=== PATIENT | male | born 1980 | race Caucasian/White ===

== ENCOUNTER 2018-10-06 08:09 | Emergency (ER) | payer MEDICARE ==
[~2018-10-06] VITALS: Ht 167.6 cm; Wt 93.9 kg
[2018-10-06] MEDS ORDERED: NAPROXEN500 MG PO (09:06)
[2018-10-06] MEDS ORDERED: CYCLOBENZAPRINE10 MG PO (09:09)
--- NOTE | 2018-10-06 09:32 | Diagnostic Imaging Report ---
EXAM: Cervical spine radiographs-3 views INDICATION: Status post fall. COMPARISON: None FINDINGS: BONES: The alignment is within normal limits. No acute displaced fractures. Vertebral body heights are preserved. C1 through the mid aspect of C7 are visualized on the lateral view. The lower aspect of C7 is partially obscured by the overlying shoulders. DISCS: Mild degenerative disc changes at C4-C5. JOINTS: No significant facet joint degenerative changes. SOFT TISSUES: Unremarkable IMPRESSION: No acute cervical spine radiographic abnormality. Signed by: Dr. Lizbeth Velásquez MD on 10/06/2018 9:29 AM
--- NOTE | 2018-10-06 09:34 | Diagnostic Imaging Report ---
Exam: Right shoulder radiographs-3 views History: Status post fall. Comparison: None. Findings: No evidence of acute fracture, malalignment, or soft tissue abnormality. Impression: No acute radiographic abnormality. Signed by: Dr. Lizbeth Velásquez MD on 10/06/2018 9:30 AM
== END 2018-10-06 09:48 | disposition home or self-care (01) ==
LOC: FSED 08:09
DX: S40.011A Contusion of right shoulder, initial encounter (principal); W01.0XXA Fall on same level from slipping, tripping and stumbling without subsequent striking against object, initial encounter; M47.892 Other spondylosis, cervical region; S16.1XXA Strain of muscle, fascia and tendon at neck level, initial encounter; Y92.511 Restaurant or cafe as the place of occurrence of the external cause
CPT/HCPCS: 72040; 99283

== ENCOUNTER 2019-01-06 20:28 | Emergency (ER) | payer OTHER ==
[~2019-01-06] VITALS: Ht 167.6 cm; Wt 93.4 kg
[~2019-01-06 20:28] MED LIST: CYCLOBENZAPRINE10 MG PO; NAPROXEN500 MG PO
--- OUTSIDE RECORDS SUMMARY | 2019-01-06 20:30 | XMS REPORT ---
[facility] Address Unknown Phone Unavailable Care Team Providers Care Germination Worker Name Role Phone Richar CABRALES Unavailable Unavailable Problems This patient has no known problems. Allergies, Adverse Reactions, Alerts This patient has no known allergies or adverse reactions. Medications This patient has no known medications. Results Test Description Test Time Test Comments Text Results Atomic Results Result Comments SHOULDER 2+VW RT - HOPD 2018 09:29:00 [place] [address] Patient Name: RADHA GUSTAFSON MR #: [id number] : 1980 Age/Sex: 38/M Req #: [id number] Adm Physician: Ordered by: HÉCTOR CABRALES MD Report #: [id number] Location: [facility] Room/Bed: Procedure: [id number] HOPD/SHOULDER 2+VW RT - HOPD Exam Date: 10/06/18 Exam Time: 0845 REPORT STATUS: Signed Exam: Right shoulder radiographs-3 views History: Status post fall. Comparison: None. Findings: No evidence of acute fracture, malalignment, or soft tissue abnormality. Impression: No acute radiographic abnormality. Signed by: Dr. Concepcion Key MD on 2018 9:30 AM Dictated By: CONCEPCION KEY MD 9 Transcribed By: DAMIR on 10/06/18929 COPY TO: HÉCTOR CABRALES MD C SPINE 2--3 VEWS - HOPD 2018 09:26:00 [facility] [address] [place] [address] Patient Name: RADHA GUSTAFSON MR #: [id number] : 1980 Age/Sex: 38/M Req #: [id number] Adm Physician: Ordered by: HÉCTOR CABRALES MD Report #: [id number] Location: [facility] Room/Bed: Procedure: [id number] HOPD/Vlad SPINE 2--3 VEWS - HOPD Exam Date: 10/06/18 Exam Time: 0845 REPORT STATUS: Signed EXAM: Cervical spine radiographs-3 views INDICATION: Status post fall. COMPARISON: None FINDINGS: BONES: The alignment is within normal limits. No acute displaced fractures. Vertebral body heights are preserved. C1 through the mid aspect of C7 are visualized on the lateral view. The lower aspect of C7 is partially obscured by the overlying shoulders. DISCS: Mild degenerative disc changes at C4- C5. JOINTS: No significant facet joint degenerative changes. SOFT TISSUES: Unremarkable IMPRESSION: No acute cervical spine radiographic abnormality. Signed by: Dr. Concepcion Key MD on 2018 9:29 AM Dictated By: CONCEPCION KEY MD 8 Transcribed By: DAMIR on 10/06/18928 COPY TO: HÉCTOR CABRALES MD
== END 2019-01-06 21:27 | disposition home or self-care (01) ==
LOC: FSED 20:28
DX: H00.014 Hordeolum externum left upper eyelid (principal)
CPT/HCPCS: 99282

== ENCOUNTER 2019-06-16 20:41 | Emergency (ER) | payer MEDICARE, OTHER ==
[~2019-06-16] VITALS: Ht 167.6 cm; Wt 97.5 kg
[2019-06-16] MEDS ORDERED: KETOROLAC TROMETHAMINE 60 MG/2 ML VIAL IM ONE (21:15)
[2019-06-16] MEDS ORDERED: KETOROLAC TROMETHAMINE 60 MG/2 ML VIAL ONE (21:26)
== END 2019-06-16 21:27 | disposition home or self-care (01) ==
LOC: FSED 20:41
DX: M25.511 Pain in right shoulder (principal)
CPT/HCPCS: 99282; J1885

== ENCOUNTER 2019-12-10 18:11 | Emergency (ER) | payer OTHER ==
[~2019-12-10] VITALS: Ht 167.6 cm; Wt 97.5 kg
[2019-12-10] MEDS ORDERED: TYLENOL # 31 EA PO (18:32)
[2019-12-10] MEDS ORDERED: ONDANSETRON HCL INJ 2MG/ML 2ML 2 MG/ML VIAL IV STA (18:35)
[2019-12-10] MEDS ORDERED: SODIUM CHLORIDE 0.9% 1000ML 1,000 ML IV STA (18:35)
[2019-12-10] MEDS ORDERED: LORAZEPAM INJ 2 MG/ML VIAL IV ONE (18:45)
[2019-12-10] MEDS ORDERED: SODIUM CHLORIDE FLUSH 10 ML SYR INJ PRN (18:45)
[2019-12-10] MEDS ORDERED: LORAZEPAM INJ 2 MG/ML VIAL ONE (18:50)
[2019-12-10] MEDS ORDERED: DONNATAL/LIDOCAINE/MAALOX 30 ML SUSP PO ONE (19:00)
[2019-12-10] MEDS ORDERED: BELLADONNA ALK/PHENOBARBITAL 5 ML UDC ONE (19:56)
[2019-12-10] MEDS ORDERED: LIDOCAINE VISC 2% SOLN 15 ML UDC ONE (19:56)
[2019-12-10] MEDS ORDERED: MAGNESIUM/ALUMINUM/SIMETHICONE 30 ML UDC ONE (19:56)
[2019-12-10] MEDS ORDERED: SODIUM CHLORIDE 0.9% 50ML 50 ML ONE (21:12)
[2019-12-10] MEDS ORDERED: IOPAMIDOL 370 MG/ML 200 ML INFUS..BTL INJ ONE (21:12)
[2019-12-10 21:34] VITALS: BP 149/74
[2019-12-10] MEDS ORDERED: ONDANSETRON ODT8 MG PO (21:34)
[2019-12-10] MEDS ORDERED: MECLIZINE HCL25 MG PO (21:34)
[2019-12-10] MEDS ORDERED: ATIVAN2 MG PO (21:34)
[2019-12-10] MEDS ORDERED: PROTONIX40 MG PO (21:34)
== END 2019-12-10 21:48 | disposition home or self-care (01) ==
LOC: FSED 18:39
DX: R42 Dizziness and giddiness (principal); K29.00 Acute gastritis without bleeding; R10.13 Epigastric pain; R11.2 Nausea with vomiting, unspecified; E86.0 Dehydration; R53.83 Other fatigue; R16.1 Splenomegaly, not elsewhere classified
CPT/HCPCS: 70450; 74177; 80048; 80053; 81003; 83518; 99284; J2060; J2405; J7030; Q9967

== ENCOUNTER 2020-03-06 16:04 | Emergency (ER) | payer OTHER ==
[~2020-03-06] VITALS: Ht 167.6 cm; Wt 94.6 kg
[~2020-03-06 16:04] MED LIST changes: +ATIVAN2 MG PO; +MECLIZINE HCL25 MG PO; +ONDANSETRON ODT8 MG PO; +PROTONIX40 MG PO; +TYLENOL # 31 EA PO
[2020-03-06] MEDS ORDERED: CLOTRIMAZOLE15 GM TOP (17:24)
[2020-03-06] MEDS ORDERED: IBUPROFEN 400 MG TAB PO ONE (17:45)
[2020-03-06] MEDS ORDERED: IBUPROFEN 400 MG TAB ONE (17:49)
[2020-03-06 17:52] VITALS: BP 166/94
== END 2020-03-06 17:57 | disposition home or self-care (01) ==
LOC: FSED 16:39
DX: M84.374A Stress fracture, right foot, initial encounter for fracture (principal); B35.4 Tinea corporis
CPT/HCPCS: 99283

== ENCOUNTER 2020-07-12 16:27 | Emergency (ER) | payer OTHER ==
[~2020-07-12] VITALS: Ht 167.6 cm; Wt 97.1 kg
[~2020-07-12 16:27] MED LIST changes: +CLOTRIMAZOLE15 GM TOP
== END 2020-07-12 17:44 | disposition home or self-care (01) ==
LOC: FSED 16:32
DX: R07.89 Other chest pain (principal); R06.02 Shortness of breath; R51.9 Headache, unspecified; R11.2 Nausea with vomiting, unspecified
CPT/HCPCS: 71046; 80053; 83880; 84484; 85025; 85379; 93005; 99284

== ENCOUNTER 2020-12-11 19:49 | Emergency (ER) | payer OTHER ==
[~2020-12-11] VITALS: Ht 167.6 cm; Wt 95.3 kg
[2020-12-11] MEDS ORDERED: IPRATROPIUM BROMIDE 0.02% 2.5 ML NEB NEB STA (20:08)
[2020-12-11] MEDS ORDERED: ALBUTEROL SULF 0.083% NEB SOLN 3 ML NEB NEB STA (20:08)
[2020-12-11] MEDS ORDERED: PROVENTIL HFA6.7 GM INH (20:16)
[2020-12-11] MEDS ORDERED: THERAFLU FLU &1 EAC1 PO (20:16)
[2020-12-11] MEDS ORDERED: PREDNISONE20 MG PO (20:16)
[2020-12-11] MEDS ORDERED: CEFDINIR300 MG PO (20:16)
[2020-12-11] MEDS ORDERED: ALBUTEROL SULF 0.083% NEB SOLN 3 ML NEB ONE (20:28)
[2020-12-11] MEDS ORDERED: ALBUTEROL/IPRATROPIUM 3 ML NEB ONE (20:29)
[2020-12-11] MEDS ORDERED: IPRAT-ALBUT 0.5-3 ML NEB (20:35)
== END 2020-12-11 21:14 | disposition home or self-care (01) ==
LOC: FSED 20:08
DX: R05.9 Cough, unspecified (principal); J20.9 Acute bronchitis, unspecified; R06.02 Shortness of breath
CPT/HCPCS: 71046; 99283

== ENCOUNTER 2022-01-13 16:15 | Emergency (ER) | payer MEDICAID, OTHER ==
[~2022-01-13] VITALS: Ht 167.6 cm; Wt 90.7 kg
[~2022-01-13 16:15] MED LIST changes: +CEFDINIR300 MG PO; +IPRAT-ALBUT 0.5-3 ML NEB; +PREDNISONE20 MG PO; +PROVENTIL HFA6.7 GM INH; +THERAFLU FLU &1 EAC1 PO
[2022-01-13] MEDS ORDERED: AZITHROMYCIN250 MG PO (16:48)
[2022-01-13] MEDS ORDERED: PREDNISONE20 MG PO (16:48)
[2022-01-13] MEDS ORDERED: VENTOLIN HFA18 GM INH (16:48)
== END 2022-01-13 16:51 | disposition home or self-care (01) ==
LOC: FSED 16:38
DX: R05.9 Cough, unspecified (principal); J40 Bronchitis, not specified as acute or chronic
CPT/HCPCS: 83518; 87400; 99282

== ENCOUNTER 2022-06-09 17:43 | Emergency (ER) | payer MEDICAID ==
[~2022-06-09] VITALS: Ht 167.6 cm; Wt 97.6 kg
[~2022-06-09 17:43] MED LIST changes: +AMOX TR-K CLV1 EAC2 PO; +AZITHROMYCIN250 MG PO; +VENTOLIN HFA18 GM INH
[2022-06-09] MEDS ORDERED: DEXAMETHASONE SOD PHOS INJ 4 MG/ML SDV IM ONE (18:00)
[2022-06-09] MEDS ORDERED: KETOROLAC TROMETHAMINE 60 MG/2 ML VIAL IM ONE (18:00)
[2022-06-09] MEDS ORDERED: KETOROLAC TROMETHAMINE 60 MG/2 ML VIAL ONE (18:02)
[2022-06-09] MEDS ORDERED: DEXAMETHASONE SOD PHOS INJ 4 MG/ML SDV ONE (18:02)
[2022-06-09] MEDS ORDERED: IBUPROFEN600 MG PO (18:12)
[2022-06-09] MEDS ORDERED: METHOCARBAMOL500 MG PO (18:14)
== END 2022-06-09 18:24 | disposition home or self-care (01) ==
LOC: FSED 17:53
DX: M54.50 Low back pain, unspecified (principal); I10 Essential (primary) hypertension
CPT/HCPCS: 96372; 99283; J1100; J1885

== ENCOUNTER 2023-08-11 06:18 | Emergency (ER) | payer OTHER ==
[~2023-08-11] VITALS: Ht 167.6 cm; Wt 93.0 kg
[~2023-08-11 06:18] MED LIST changes: +CLEOCIN HCL300 MG PO; +IBUPROFEN200 MG PO; +IBUPROFEN600 MG PO; +METHOCARBAMOL500 MG PO; +ONDANSETRON ODT4 MG PO; +TYLENOL325 MG PO
[2023-08-11 06:28] VITALS: PULSE 81; RESP 18; TEMP 98.3
[2023-08-11] MEDS ORDERED: NASACORT16.9 ML (06:52)
[2023-08-11] MEDS ORDERED: DIPHENHYDRAMINE25 M2 PO (06:52)
[2023-08-11] MEDS ORDERED: SUDAFED PE HEA PO (06:52)
[2023-08-11 07:07] VITALS: BP 135/84; PULSE 81; RESP 18; TEMP 98.3; O2SAT 98
== END 2023-08-11 07:07 | disposition home or self-care (01) ==
LOC: FSED 06:28
DX: R09.89 Other specified symptoms and signs involving the circulatory and respiratory systems (principal); J06.9 Acute upper respiratory infection, unspecified; I10 Essential (primary) hypertension; Q23.8 Other congenital malformations of aortic and mitral valves
CPT/HCPCS: 83518; 99282